=== PATIENT | female | born 1990 | race Caucasian/White ===

== ENCOUNTER 2016-12-29 20:36 | Emergency (ER) | payer OTHER ==
[~2016-12-29] VITALS: Ht 160 cm; Wt 98.3 kg
[~2016-12-29 20:36] MED LIST: BENTYL20 MG PO; CLEOCIN300 MG PO; CLONAZEPAM0.5 MG PO; COLACE100 MG PO; Colace PO; ENDOCET 5-3251 EACH PO; FLEXERIL10 MG PO; FLEXERIL5 M1 PO; HYDROCODON-ACE1 EAC7 PO; IBUPROFEN800 MG PO; IRON325 MG PO; KlonoPIN PO; LEXAPRO10 MG PO; MOTRIN400 MG PO; NAPROSYN500 MG PO; PEN-VEE K,VEET500 MG PO; PERCOCET 5/31 TABLET PO; PRENACARE TABL1 EACH PO; PRENATAL TABLE1 EAC3 PO; PRENATAL1 EACH PO; TRAMADOL HCL50 MG PO; TUMS500 MG PO; TYLENOL EXTRA500 MG PO; TYLENOL WITH C1 EACH PO; VALIUM5 MG PO; VICODIN 5-3001 EACH PO; ZANTAC150 MG PO; celeXA PO
[2016-12-29 20:38] VITALS: BP 131/81
[2016-12-29] MEDS ORDERED: MOTRIN600 MG PO (21:25)
[2016-12-29] MEDS ORDERED: SKELAXIN800 MG PO (21:25)
== END 2016-12-29 21:46 | disposition home or self-care (01) ==
LOC: EME 20:36
DX: S43.402A Unspecified sprain of left shoulder joint, initial encounter (principal); Y99.0 Civilian activity done for income or pay; X50.9XXA Other and unspecified overexertion or strenuous movements or postures, initial encounter; Z88.2 Allergy status to sulfonamides
CPT/HCPCS: 99281; 99284

== ENCOUNTER 2017-11-30 17:04 | Emergency (ER) | payer OTHER ==
[~2017-11-30] VITALS: Ht 157.5 cm; Wt 99.7 kg
[~2017-11-30 17:04] MED LIST changes: +MOTRIN600 MG PO; +SKELAXIN800 MG PO
[2017-11-30] MEDS ORDERED: PERCOCET 5/31 TABLET PO (17:28)
[2017-11-30] MEDS ORDERED: SKELAXIN800 MG PO (17:28)
[2017-11-30] MEDS ORDERED: NAPROXEN500 MG PO (17:28)
[2017-11-30 17:46] VITALS: BP 119/90
== END 2017-11-30 17:47 | disposition home or self-care (01) ==
LOC: EME 17:04
DX: M54.5 Low back pain (principal); K21.9 Gastro-esophageal reflux disease without esophagitis; F41.9 Anxiety disorder, unspecified; F32.9 Major depressive disorder, single episode, unspecified; Z88.2 Allergy status to sulfonamides
CPT/HCPCS: 99281; 99284